=== PATIENT | male | born 1955 | race Caucasian/White ===

== ENCOUNTER → 2020-12-17 | Day surgery (SDC) | payer MEDICARE, OTHER ==
[~2020-12-17] MED LIST: ALLEGRA ALLERG180 MG PO; FLONASE ALLER15.8 ML; NORCO 5-325 TA1 EACH PO; REVATIO 20MG TA20 MG PO; SINGULAIR10 MG PO; ZESTRIL5 MG PO; ZOFRAN8 MG PO
== END | disposition home or self-care (01) ==
LOC: FAS 09:30
DX: Z12.11 Encounter for screening for malignant neoplasm of colon (principal); K57.30 Diverticulosis of large intestine without perforation or abscess without bleeding; Z86.010 Personal history of colon polyps; Z83.71 Family history of colonic polyps; Z87.448 Personal history of other diseases of urinary system; Z90.81 Acquired absence of spleen; Z98.890 Other specified postprocedural states; Z20.822 Contact with and (suspected) exposure to COVID-19
CPT/HCPCS: J2704; J7120